=== PATIENT | male | born 1970 | race Caucasian/White ===

== ENCOUNTER 2025-01-13 23:38 | Emergency (ER) | payer OTHER ==
[2025-01-14 00:19] LABS: BASO # 0.0 10^3/uL (0.0-0.2); BASO % 0.4 % (0.0-1.0); EOS # 0.2 10^3/uL (0.0-0.5); EOS % 2.2 % (0.0-3.0); LYMPH # 3.7 10^3/uL (1.5-5.0); LYMPH % 41.2 % (24.0-44.0); MONO # 1.0 10^3/uL (0.0-0.8); MONO % 11.2 % (2.0-8.0); NEUTROPHILS # 4.0 10^3/uL (1.5-8.5); NEUTROPHILS % 44.8 % (36.0-66.0); PLATELET COUNT, AUTOMATED 219 10^3/uL (150-450)
[2025-01-14 00:21] LABS: INR 0.89
[2025-01-14 00:31] LABS: CK-MB VALUE MASS 2.0 NG/ML (<3.6)
[2025-01-14 00:33] LABS: CALCIUM LEVEL 8.5 MG/DL (8.5-10.1); CARBON DIOXIDE LEVEL 26.0 MMOL/L (20-31); CHLORIDE LEVEL 107.0 MMOL/L (98-107); CPK CREATINE PHOSPHOKINASE 129.0 U/L (46-171); CREATININE FOR GFR 1.08 MG/DL (0.70-1.30); GLOMERULAR FILTRATION RATE 81.6 (>56); MB/CK RELATIVE INDEX 1.55 (< OR =4); POTASSIUM SERUM 3.6 MMOL/L (3.5-5.1); SODIUM LEVEL 141.0 MMOL/L (136-145)
[2025-01-14 02:11] LABS: CK-MB VALUE MASS 1.9 NG/ML (<3.6)
[2025-01-14 02:13] LABS: CPK CREATINE PHOSPHOKINASE 122.0 U/L (46-171); MB/CK RELATIVE INDEX 1.55 (< OR =4)
[2025-01-14] MEDS ORDERED: ISOVUE-370 76% 100 ML VIAL As Ordered ONE (08:59)
[2025-01-14 10:01] VITALS: BP 151/77; TEMP 98.7; O2SAT 97
[2025-01-17 15:13] LABS: LYME TOTAL ANTIBODY CIA <= 0.90 Index (<=0.90)
== END 2025-01-14 10:05 | disposition home or self-care (01) ==
LOC: M ED 23:38
DX: R07.9 Chest pain, unspecified (principal); R53.83 Other fatigue; I10 Essential (primary) hypertension; R00.1 Bradycardia, unspecified; I42.2 Other hypertrophic cardiomyopathy
CPT/HCPCS: 36415; 71045; 71275; 80048; 82550; 82553; 84484; 85025; 85610; 85730; 86618; 93005; 99285; Q9967